=== PATIENT | female | born 1995 | race American Indian/Alaskan Native ===

== ENCOUNTER 2019-08-08 21:53 | Emergency (ER) | payer SELFPAY ==
[2019-08-08 22:01] VITALS: BP 132/77
[2019-08-08] MEDS ORDERED: ACETAMINOPHEN 500 MG TAB PO ONE (23:09)
[2019-08-08] MEDS ORDERED: METOCLOPRAMIDE 10 MG TAB PO ONE (23:09)
[2019-08-08] MEDS ORDERED: predniSONE 20 MG TAB PO ONE (23:09)
[2019-08-08] MEDS ORDERED: diphenhydrAMINE 25 MG CAP PO ONE (23:09)
--- NOTE | 2019-08-09 00:28 | Emergency Department Report ---
ED ENT HPI - General Chief complaint: Sore Throat Stated complaint: SORE THROAT, HEADACHE, RUNNY NOSE Time Seen by Provider: 08/08/19 22:58 Source: patient Mode of arrival: Ambulatory Limitations: No Limitations - History of Present Illness Initial comments: Ms. Perdue is a 24 y/o aaf who presents for headache. sore throat cough, and sinus pain and pressure. pt states low grade fever no chills no n/v. pt is tolerating po intake. symptoms are exacerbated by movement and position , symptoms are relieved by rest. pt states minimal pain with swallowing. MD complaint: sore throat, ear pain Onset/Timin -: days(s) Location: throat, other (sinus ) Severity: moderate Severity scale (0 -10): 5 Quality: aching Consistency: intermittent Improves with: none Worsens with: position, movement Associated Symptoms: fever, cough, sore throat, rhinorrhea. denies: gum swelling, toothache, pain with swallowing, tinnitus, hearing loss, discharge from ear - Related Data Previous Rx's Medication Instructions Recorded Last Taken Type Amoxicillin/Potassium Clav 1 each PO BID 10 Days #20 tablet 08/09/19 Unknown Rx [Augmentin 875-125 Tablet] Ibuprofen [Motrin 800 MG tab] 800 mg PO Q8HR PRN #30 tablet 08/09/19 Unknown Rx diphenhydrAMINE [Benadryl CAP] 25 mg PO Q8HR PRN #30 capsule 08/09/19 Unknown Rx predniSONE [Deltasone] 40 mg PO DAILY 5 Days #10 tablet 08/09/19 Unknown Rx Allergies Allergy/AdvReac Type Severity Reaction Status Date / Time No Known Allergies Allergy Unverified 08/08/19 21:54 ED Dental HPI - General Chief complaint: Sore Throat Stated complaint: SORE THROAT, HEADACHE, RUNNY NOSE Time Seen by Provider: 08/08/19 22:58 Source: patient Mode of arrival: Ambulatory Limitations: No Limitations - Related Data Previous Rx's Medication Instructions Recorded Last Taken Type Amoxicillin/Potassium Clav 1 each PO BID 10 Days #20 tablet 08/09/19 Unknown Rx [Augmentin 875-125 Tablet] Ibuprofen [Motrin 800 MG tab] 800 mg PO Q8HR PRN #30 tablet 08/09/19 Unknown Rx diphenhydrAMINE [Benadryl CAP] 25 mg PO Q8HR PRN #30 capsule 08/09/19 Unknown Rx predniSONE [Deltasone] 40 mg PO DAILY 5 Days #10 tablet 08/09/19 Unknown Rx Allergies Allergy/AdvReac Type Severity Reaction Status Date / Time No Known Allergies Allergy Unverified 08/08/19 21:54 ED Review of Systems ROS: Stated complaint: SORE THROAT, HEADACHE, RUNNY NOSE Other details as noted in HPI Constitutional: chills, fever Eyes: as per HPI ENT: ear pain, throat pain, congestion Respiratory: cough. denies: shortness of breath, wheezing Cardiovascular: denies: chest pain, palpitations Endocrine: no symptoms reported Gastrointestinal: denies: abdominal pain, nausea, vomiting Genitourinary: denies: urgency, dysuria, discharge Musculoskeletal: denies: back pain, joint swelling, arthralgia Skin: denies: rash, lesions Neurological: headache. denies: weakness, numbness, paresthesias, confusion, vertigo Psychiatric: denies: anxiety, depression Hematological/Lymphatic: denies: easy bleeding, easy bruising ED Past Medical Hx - Past Medical History Previous Medical History?: No - Surgical History Past Surgical History?: No - Social History Smoking Status: Never Smoker Substance Use Type: None - Medications Home Medications: Home Medications Medication Instructions Recorded Confirmed Last Taken Type Amoxicillin/Potassium Clav 1 each PO BID 10 Days #20 tablet 08/09/19 Unknown Rx [Augmentin 875-125 Tablet] Ibuprofen [Motrin 800 MG tab] 800 mg PO Q8HR PRN #30 tablet 08/09/19 Unknown Rx diphenhydrAMINE [Benadryl CAP] 25 mg PO Q8HR PRN #30 capsule 08/09/19 Unknown Rx predniSONE [Deltasone] 40 mg PO DAILY 5 Days #10 tablet 08/09/19 Unknown Rx ED Physical Exam - General Limitations: No Limitations General appearance: alert, in no apparent distress - Head Head exam: Present: atraumatic, normocephalic - Eye Eye exam: Present: normal appearance, PERRL, EOMI Pupils: Present: normal accommodation - ENT ENT exam: Present: mucous membranes moist, TM's normal bilaterally, normal external ear exam, other (bilat maxillary sinus tenderness to palpation, bilat turbinate boggy ,clear rhinorrhea ) - Expanded ENT Exam Expanded Ear exam: Present: normal external inspection TM/Canal exam: Erythema: Left TM, Effusion: Left TM Throat exam: Positive: tonsillar erythema, tonsillomegaly, other (uvula midline no exudate no lesions ). Negative: tonsillar exudate, R peritonsillar mass, L peritonsillar mass - Neck Neck exam: Present: normal inspection, tenderness, full ROM. Absent: lymphadenopathy, thyromegaly - Respiratory Respiratory exam: Present: normal lung sounds bilaterally. Absent: respiratory distress, wheezes, stridor, chest wall tenderness - Cardiovascular Cardiovascular Exam: Present: regular rate, normal rhythm, normal heart sounds. Absent: systolic murmur, diastolic murmur, rubs, gallop - GI/Abdominal GI/Abdominal exam: Present: soft, normal bowel sounds. Absent: tenderness, guarding, rebound, rigid, bruit, hernia - Extremities Exam Extremities exam: Present: normal inspection - Back Exam Back exam: Present: normal inspection, full ROM. Absent: CVA tenderness (R), CVA tenderness (L) - Neurological Exam Neurological exam: Present: alert, oriented X3 - Psychiatric Psychiatric exam: Present: normal affect, normal mood - Skin Skin exam: Present: warm, dry, intact, normal color. Absent: rash ED Course Vital Signs 08/08/19 21:54 Temperature 99.2 F Pulse Rate 106 H Respiratory 18 Rate Blood Pressure 132/77 O2 Sat by Pulse 100 Oximetry ED Medical Decision Making - Medical Decision Making headache improved , plan tx for sinus headache, sinusitis, aom, pt will dc to home with rx for augmentin, ibuprofen, benadryl, prednisone. Pt will follow up iwht pcp in 2-3 days. pt verbalized agreement and understanding of discharge plan. Critical care attestation.: If time is entered above; I have spent that time in minutes in the direct care of this critically ill patient, excluding procedure time. ED Disposition Clinical Impression: Sinus headache AOM (acute otitis media) Qualifiers: Otitis media type: serous Laterality: left Recurrence: non-recurrent Qualified Code(s): H65.02 - Acute serous otitis media, left ear Sinusitis Qualifiers: Sinusitis location: maxillary Chronicity: acute Recurrence: recurrent Qualified Code(s): J01.01 - Acute recurrent maxillary sinusitis Disposition: DC-01 TO HOME OR SELFCARE Is pt being admited?: No Does the pt Need Aspirin: No Condition: Stable Instructions: Acute Headache (ED), Sinusitis (ED), Otitis Media (ED) Prescriptions: Amoxicillin/Potassium Clav [Augmentin 875-125 Tablet] 1 each PO BID 10 Days #20 tablet diphenhydrAMINE [Benadryl CAP] 25 mg PO Q8HR PRN #30 capsule PRN Reason: sinus congestion predniSONE [Deltasone] 40 mg PO DAILY 5 Days #10 tablet Ibuprofen [Motrin 800 MG tab] 800 mg PO Q8HR PRN #30 tablet PRN Reason: pain fever Referrals: [facility] [Provider Group] - 3-5 Days Forms: Work/School Release Form(ED) Time of Disposition: 00:44
== END 2019-08-09 00:45 | disposition home or self-care (01) ==
LOC: ED 21:53
DX: J32.0 Chronic maxillary sinusitis (principal); H66.92 Otitis media, unspecified, left ear; Z79.899 Other long term (current) drug therapy
CPT/HCPCS: 99282; J7512

== ENCOUNTER 2019-08-31 20:22 | Emergency (ER) | payer SELFPAY ==
[2019-08-31] MEDS ORDERED: ACETAMINOPHEN 500 MG TAB PO ONE (20:45)
[2019-08-31] MEDS ORDERED: SODIUM CHLORIDE 0.9% 1000 ML 1,000 ML IV ONE (20:45)
[2019-08-31] MEDS ORDERED: CLINDAMYCIN 600 MG/50 mL 600 MG/50 ML BAG IV ONE (20:45)
--- NOTE | 2019-08-31 20:47 | Emergency Department Report ---
ED ENT HPI - General Chief complaint: Dental/Oral Stated complaint: TOOTHACHE Time Seen by Provider: 08/31/19 20:42 Source: patient Mode of arrival: Ambulatory Limitations: No Limitations - History of Present Illness Initial comments: Patient is a 24-year-old female that presents emergency room with complaints of fever and toothache. Patient states she has had a toothache x3 days. Patient states her fever started as her pain increased. Patient denies chest pain. Patient denies shortness of breath. Patient denies cough. Patient denies lightheadedness. Patient denies dizziness. Patient denies headache. Patient denies neck stiffness. Patient denies respiratory symptoms. Patient denies recent travel. Patient denies recent international travel. Patient denies exposure to the novel coronavirus. Patient denies sick contacts. Patient denies fever and chills. Patient denies cough. Patient denies diarrhea. Patient denies coming in contact with anybody with symptoms of the novel coronavirus. MD complaint: tooth pain -: days(s) Location: other Severity: severe Severity scale (0 -10): 10 Quality: stabbing Consistency: constant Improves with: rest Worsens with: eating, movement Context- Dental: history of dental caries, poor dental care Associated Symptoms: fever, gum swelling, toothache. denies: cough, pain with swallowing, sore throat, tinnitus, hearing loss, discharge from ear, rhinorrhea - Related Data Previous Rx's Medication Instructions Recorded Last Taken Type Ibuprofen [Motrin 800 MG tab] 800 mg PO Q8HR PRN #30 tablet 08/09/19 Unknown Rx diphenhydrAMINE [Benadryl CAP] 25 mg PO Q8HR PRN #30 capsule 08/09/19 Unknown Rx predniSONE [Deltasone] 40 mg PO DAILY 5 Days #10 tablet 08/09/19 Unknown Rx Acetaminophen/Codeine [Tylenol 1 tab PO Q6H PRN #10 tab 08/31/19 Unknown Rx /Codeine # 3 tab] Amoxicillin/Potassium Clav 1 each PO BID 10 Days #20 tablet 08/31/19 Unknown Rx [Augmentin 875-125 Tablet] Allergies Allergy/AdvReac Type Severity Reaction Status Date / Time No Known Allergies Allergy Unverified 08/08/19 21:54 ED Dental HPI - General Chief complaint: Dental/Oral Stated complaint: TOOTHACHE Time Seen by Provider: 08/31/19 20:42 Source: patient Mode of arrival: Ambulatory Limitations: No Limitations - Related Data Previous Rx's Medication Instructions Recorded Last Taken Type Ibuprofen [Motrin 800 MG tab] 800 mg PO Q8HR PRN #30 tablet 08/09/19 Unknown Rx diphenhydrAMINE [Benadryl CAP] 25 mg PO Q8HR PRN #30 capsule 08/09/19 Unknown Rx predniSONE [Deltasone] 40 mg PO DAILY 5 Days #10 tablet 08/09/19 Unknown Rx Acetaminophen/Codeine [Tylenol 1 tab PO Q6H PRN #10 tab 08/31/19 Unknown Rx /Codeine # 3 tab] Amoxicillin/Potassium Clav 1 each PO BID 10 Days #20 tablet 08/31/19 Unknown Rx [Augmentin 875-125 Tablet] Allergies Allergy/AdvReac Type Severity Reaction Status Date / Time No Known Allergies Allergy Unverified 08/08/19 21:54 ED Review of Systems ROS: Stated complaint: TOOTHACHE Other details as noted in HPI Constitutional: fever. denies: chills Eyes: denies: eye pain, eye discharge, vision change ENT: dental pain. denies: ear pain, throat pain, hearing loss, epistaxis, congestion Respiratory: denies: cough, shortness of breath, SOB with exertion, SOB at rest, wheezing Cardiovascular: denies: chest pain, palpitations Endocrine: no symptoms reported Gastrointestinal: denies: abdominal pain, nausea, diarrhea Genitourinary: denies: urgency, dysuria, discharge Musculoskeletal: denies: back pain, joint swelling, arthralgia Skin: denies: rash, lesions Neurological: denies: headache, weakness, paresthesias Psychiatric: denies: anxiety, depression Hematological/Lymphatic: denies: easy bleeding, easy bruising ED Past Medical Hx - Past Medical History Previous Medical History?: No - Surgical History Past Surgical History?: No - Family History Family history: no significant - Social History Smoking Status: Never Smoker Substance Use Type: None - Medications Home Medications: Home Medications Medication Instructions Recorded Confirmed Last Taken Type Ibuprofen [Motrin 800 MG tab] 800 mg PO Q8HR PRN #30 tablet 08/09/19 Unknown Rx diphenhydrAMINE [Benadryl CAP] 25 mg PO Q8HR PRN #30 capsule 08/09/19 Unknown Rx predniSONE [Deltasone] 40 mg PO DAILY 5 Days #10 tablet 08/09/19 Unknown Rx Acetaminophen/Codeine [Tylenol 1 tab PO Q6H PRN #10 tab 08/31/19 Unknown Rx /Codeine # 3 tab] Amoxicillin/Potassium Clav 1 each PO BID 10 Days #20 tablet 08/31/19 Unknown Rx [Augmentin 875-125 Tablet] ED Physical Exam - General Limitations: No Limitations General appearance: alert, in no apparent distress - Head Head exam: Present: atraumatic, normocephalic - Eye Eye exam: Present: normal appearance - ENT ENT exam: Present: mucous membranes moist, other (Gingival swelling noted right lower gum with a dental cavity noted. No oral abscess noted) - Neck Neck exam: Present: normal inspection - Respiratory Respiratory exam: Present: normal lung sounds bilaterally. Absent: respiratory distress - Cardiovascular Cardiovascular Exam: Present: regular rate, normal rhythm. Absent: systolic murmur, diastolic murmur, rubs, gallop - GI/Abdominal GI/Abdominal exam: Present: soft, normal bowel sounds - Extremities Exam Extremities exam: Present: normal inspection - Back Exam Back exam: Present: normal inspection - Neurological Exam Neurological exam: Present: alert, oriented X3 - Psychiatric Psychiatric exam: Present: normal affect, normal mood - Skin Skin exam: Present: warm, dry, intact, normal color. Absent: rash ED Course Vital Signs 08/31/19 08/31/19 08/31/19 20:26 20:53 20:54 Temperature 102.4 F H Pulse Rate 121 H 104 H Respiratory 22 18 18 Rate Blood Pressure 148/91 O2 Sat by Pulse 99 98 Oximetry 08/31/19 21:54 Temperature Pulse Rate Respiratory 18 Rate Blood Pressure O2 Sat by Pulse Oximetry - Reevaluation(s) Reevaluation #1: Initial evaluation done. I had the patient rest and I rechecked the patient's heart rate and then patient's heart rate was 98. Patient will have an IV placed and IV fluids and IV clindamycin given. Patient also be given Tylenol and will reassess the patient's vital signs and symptoms. 08/31/19 20:48 Reevaluation #2: Patient's heart rate is 100 at this time. Patient is receiving antibiotics and fluids. Patient is already taking oral Tylenol. We will continue to monitor vital signs and temperature. 08/31/19 21:11 Reevaluation #3: Patient states she is afebrile. Patient states she feeling much better. Patient states her pain is in half. Patient states she is ready to go. Patient states she going to see a dentist in the morning. I discussed all clinical findings with patient. I discussed plan of care with patient. Patient agrees with plan of care. Patient is stable for discharge. Patient will be discharged home. Patient given discharge instructions. Patient voiced understanding of discharge instructions. 08/31/19 22:07 ED Medical Decision Making - Medical Decision Making Patient is a 24-year-old female that presents emergency room with fever and toothache. Patient found to have an infected tooth. Patient was given IV fluids and clindamycin and her vital signs and heart rate improved. Patient left the hospital afebrile after Tylenol. Patient stated prior to discharge that she was feeling much better. Patient discharged home with oral antibiotics and pain medications. Patient also given instruction to follow-up with a dentist as soon as possible. - Differential Diagnosis Tooth ache, fever Critical care attestation.: If time is entered above; I have spent that time in minutes in the direct care of this critically ill patient, excluding procedure time. ED Disposition Clinical Impression: Dental infection, Dental caries Fever Qualifiers: Fever type: unspecified Qualified Code(s): R50.9 - Fever, unspecified Disposition: - TO HOME OR SELFCARE Is pt being admited?: No Does the pt Need Aspirin: No Condition: Stable Instructions: Dental Caries (ED), Toothache (ED) Additional Instructions: Patient to follow-up with primary care in 2 to 3 days. Patient to follow-up with dentist in 2 to 3 days. Patient to rest. Patient to increase water. Patient to take Tylenol or ibuprofen as needed for pain. Patient to eat a soft, brat diet. patient to take meds as directed. Patient to return to the ER if condition worsens, changes or new symptoms arise. Prescriptions: Amoxicillin/Potassium Clav [Augmentin 875-125 Tablet] 1 each PO BID 10 Days #20 tablet Acetaminophen/Codeine [Tylenol /Codeine # 3 tab] 1 tab PO Q6H PRN #10 tab PRN Reason: Pain , Severe (7-10) Referrals: PRIMARY CARE,MD [Primary Care Provider] - 2-3 Days Time of Disposition: 22:10
[2019-08-31 22:09] VITALS: BP 129/92
== END 2019-08-31 22:24 | disposition home or self-care (01) ==
LOC: ED 20:22
DX: K02.9 Dental caries, unspecified (principal); R50.9 Fever, unspecified; Z79.899 Other long term (current) drug therapy
CPT/HCPCS: 96365; 99283; J7030

== ENCOUNTER 2019-09-02 20:32 | Emergency (ER) | payer SELFPAY ==
[2019-09-02] MEDS ORDERED: KETOROLAC 30 MG/1 ML INJ IV ONE (20:49)
--- NOTE | 2019-09-02 20:57 | Emergency Department Report ---
ED ENT HPI - General Chief complaint: Dental/Oral Stated complaint: TOOTHACHE/FOLLOW UP Time Seen by Provider: 09/02/19 20:48 Source: patient Mode of arrival: Ambulatory Limitations: No Limitations - Related Data Previous Rx's Medication Instructions Recorded Last Taken Type Ibuprofen [Motrin 800 MG tab] 800 mg PO Q8HR PRN #30 tablet 08/09/19 Unknown Rx diphenhydrAMINE [Benadryl CAP] 25 mg PO Q8HR PRN #30 capsule 08/09/19 Unknown Rx predniSONE [Deltasone] 40 mg PO DAILY 5 Days #10 tablet 08/09/19 Unknown Rx Acetaminophen/Codeine [Tylenol 1 tab PO Q6H PRN #10 tab 08/31/19 Unknown Rx /Codeine # 3 tab] Amoxicillin/Potassium Clav 1 each PO BID 10 Days #20 tablet 08/31/19 Unknown Rx [Augmentin 875-125 Tablet] Allergies Allergy/AdvReac Type Severity Reaction Status Date / Time No Known Allergies Allergy Unverified 08/08/19 21:54 ED Dental HPI - General Chief complaint: Dental/Oral Stated complaint: TOOTHACHE/FOLLOW UP Time Seen by Provider: 09/02/19 20:48 Source: patient Mode of arrival: Ambulatory Limitations: No Limitations - History of Present Illness Initial comments: This 24-year-old female returns to the ED 24 hours later for increased pain and gum swelling that happened in the last day. Patient initially presented to the ER 2 days ago for a complaint as stated below Patient presented to the emergency room with complaints of fever and toothache. Patient states she has had a toothache x3 days. Patient states her fever started as her pain increased. Patient denies chest pain. Patient denies shortness of breath. Patient denies cough. Patient denies lightheadedness. Patient denies dizziness. Patient denies headache. Patient denies neck stiffness. Patient denies respiratory symptoms. Patient states that she was a bit worried when she noted the gum swelling to the right lower jaw. Patient states that she started the oral antibiotics yesterday and pain medication. MD complaint: tooth pain -: Gradual, Sudden Severity: moderate Quality: aching Context- Dental: history of dental caries Dental Associated Symptons: Yes: Gum Swelling - Related Data Previous Rx's Medication Instructions Recorded Last Taken Type Ibuprofen [Motrin 800 MG tab] 800 mg PO Q8HR PRN #30 tablet 08/09/19 Unknown Rx diphenhydrAMINE [Benadryl CAP] 25 mg PO Q8HR PRN #30 capsule 08/09/19 Unknown Rx predniSONE [Deltasone] 40 mg PO DAILY 5 Days #10 tablet 08/09/19 Unknown Rx Acetaminophen/Codeine [Tylenol 1 tab PO Q6H PRN #10 tab 08/31/19 Unknown Rx /Codeine # 3 tab] Amoxicillin/Potassium Clav 1 each PO BID 10 Days #20 tablet 08/31/19 Unknown Rx [Augmentin 875-125 Tablet] Allergies Allergy/AdvReac Type Severity Reaction Status Date / Time No Known Allergies Allergy Unverified 08/08/19 21:54 ED Review of Systems ROS: Stated complaint: TOOTHACHE/FOLLOW UP Other details as noted in HPI Comment: All other systems reviewed and negative ED Past Medical Hx - Social History Smoking Status: Never Smoker Substance Use Type: None - Medications Home Medications: Home Medications Medication Instructions Recorded Confirmed Last Taken Type Ibuprofen [Motrin 800 MG tab] 800 mg PO Q8HR PRN #30 tablet 08/09/19 Unknown Rx diphenhydrAMINE [Benadryl CAP] 25 mg PO Q8HR PRN #30 capsule 08/09/19 Unknown Rx predniSONE [Deltasone] 40 mg PO DAILY 5 Days #10 tablet 08/09/19 Unknown Rx Acetaminophen/Codeine [Tylenol 1 tab PO Q6H PRN #10 tab 08/31/19 Unknown Rx /Codeine # 3 tab] Amoxicillin/Potassium Clav 1 each PO BID 10 Days #20 tablet 08/31/19 Unknown Rx [Augmentin 875-125 Tablet] ED Physical Exam - General Limitations: No Limitations General appearance: alert, in no apparent distress - Head Head exam: Present: atraumatic, normocephalic - Eye Eye exam: Present: normal appearance - ENT ENT exam: Present: mucous membranes moist - Expanded ENT Exam Expanded Mouth exam: Present: other (Swelling noted to the right jaw) Teeth exam: Present: dental caries (Tooth #29, missing tooth,), gingival enlargement (Tooth #29, when expressed with the tongue depressor puslike discharge seeping out.) Throat exam: Positive: normal inspection. Negative: tonsillar erythema, tonsillomegaly, tonsillar exudate, R peritonsillar mass, L peritonsillar mass - Neck Neck exam: Present: normal inspection, full ROM. Absent: tenderness - Respiratory Respiratory exam: Present: normal lung sounds bilaterally. Absent: respiratory distress - Cardiovascular Cardiovascular Exam: Present: regular rate, normal rhythm. Absent: systolic murmur, diastolic murmur, rubs, gallop - GI/Abdominal GI/Abdominal exam: Present: soft, normal bowel sounds - Extremities Exam Extremities exam: Present: normal inspection - Back Exam Back exam: Present: normal inspection - Neurological Exam Neurological exam: Present: alert, oriented X3 - Psychiatric Psychiatric exam: Present: normal affect, normal mood - Skin Skin exam: Present: warm, dry, intact, normal color. Absent: rash ED Course Vital Signs 09/02/19 09/02/19 20:38 22:09 Temperature 99.8 F H 98.6 F Pulse Rate 130 H 96 H Respiratory 20 18 Rate Blood Pressure 144/100 129/75 [Right] O2 Sat by Pulse 98 100 Oximetry - Reevaluation(s) Reevaluation #1: 09/02/19 21:10 Patient heart rate was elevated and a low-grade fever so will give fluids antibiotics and pain meds in the ER. Will reassess and evaluate heart rate after fluid and antibiotic administration. Reevaluation #2: Patient is feeling some better, vital signs are normalized, pulse rate was reduced Patient will be discharged with instructions to follow-up with a dentist. 09/03/19 06:48 ED Medical Decision Making - Medical Decision Making This 24-year-old female who returned to the ED due to a dental abscess causing swelling to the right lower jaw. Patient given antibiotics and fluids in the ED. Vital signs normalized in the ED. Discussed with patient to continue taking antibiotics and pain medication as given initially. Discussed with patient to follow-up with the dentist as soon as possible. Patient states she understands instructions she is in no respiratory or acute distress. Critical care attestation.: If time is entered above; I have spent that time in minutes in the direct care of this critically ill patient, excluding procedure time. ED Disposition Clinical Impression: Dental abscess Disposition: - TO HOME OR SELFCARE Is pt being admited?: No Does the pt Need Aspirin: No Condition: Stable Instructions: Dental Abscess (ED) Additional Instructions: Make sure to follow up with the primary care physician as discussed. Take all your medications as you've been prescribed. If you have any worsening symptoms or develop new symptoms please return to ED immediately. Referrals: PRIMARY CARE, [Primary Care Provider] - 3-5 Days [facility] [Outside] - 3-5 Days [facility] [Outside] - 3-5 Days Forms: Work/School Release Form(ED) Time of Disposition: 22:05
[2019-09-02] MEDS ORDERED: CLINDAMYCIN 600 MG/50 mL 600 MG/50 ML BAG IV ONE (21:00)
[2019-09-02] MEDS ORDERED: SODIUM CHLORIDE 0.9% 1000 ML 1,000 ML IV ONE (21:04)
[2019-09-02 22:10] VITALS: BP 129/75
== END 2019-09-02 22:28 | disposition home or self-care (01) ==
LOC: ED 20:32
DX: K04.7 Periapical abscess without sinus (principal); Z79.899 Other long term (current) drug therapy
CPT/HCPCS: 96365; 96375; 99282; J1885; J7030

== ENCOUNTER 2021-01-03 10:29 | Emergency (ER) | payer SELFPAY | END 2021-01-03 10:30 | disposition left against medical advice (07) | LOC: ED 10:29 | DX: R07.89 Other chest pain (principal); Z53.21 Procedure and treatment not carried out due to patient leaving prior to being seen by health care provider ==

== ENCOUNTER 2021-08-24 10:53 | Emergency (ER) | payer SELFPAY ==
[2021-08-24] MEDS ORDERED: SODIUM CHLORIDE 0.9% 1000 ML 1,000 ML IV ONE (11:31)
[2021-08-24] MEDS ORDERED: ONDANSETRON 4 MG/2 ML INJ IV ONE (11:31)
[2021-08-24] MEDS ORDERED: MORPHINE 4 MG/1 ML INJ IV ONE (11:31)
[2021-08-24 11:50] LABS: Bacteria,Urine 1+ /HPF (Negative); Bilirubin,Urine NEG (Negative); Blood,Urine NEG (Negative); Color,Urine Yellow (Yellow); Mucus,Urine FEW /HPF; Protein,Urine <15 mg/dL mg/dL (Negative); Urobilinogen,Urine < 2.0 mg/dL (<2.0)
[2021-08-24 11:54] LABS: HCG Qualitative,Urine Negative (Negative)
[2021-08-24 12:16] LABS: Basophils % (Auto) 0.4 % (0.0-1.8); Eosinophils # (Auto) 0.1 K/mm3 (0.0-0.4); Eosinophils % (Auto) 1.4 % (0.0-4.3); Hematocrit 35.2 % (30.3-42.9); Hemoglobin 11.1 gm/dl (10.1-14.3); Lymphocytes # (Auto) 2.7 K/mm3 (1.2-5.4); Lymphocytes % (Auto) 47.9 % (13.4-35.0); Mean Corpuscular HGB Conc 32 % (30-34); Monocytes # (Auto) 0.4 K/mm3 (0.0-0.8); Monocytes % (Auto) 7.5 % (0.0-7.3); Red Blood Count 5.83 M/mm3 (3.65-5.03); Red Cell Distribution Width 14.6 % (13.2-15.2)
[2021-08-24 12:18] LABS: Mean Corpuscular Volume 60 fl (79-97)
[2021-08-24 12:24] LABS: Platelet Count 173 K/mm3 (140-440)
[2021-08-24 12:41] LABS: Alanine Aminotransferase 15 units/L (7-56); Albumin 4.3 g/dL (3.9-5); BUN/Creatinine Ratio 19; Blood Urea Nitrogen 13 mg/dL (7-17); Calcium 9.4 mg/dL (8.4-10.2); Hemolysis Index 1
--- NOTE | 2021-08-24 12:41 | Emergency Department Report ---
ED Abdominal Pain HPI - General Chief Complaint: Abdominal Pain Stated Complaint: ABD PAIN Time Seen by Provider: 08/24/21 11:27 Source: patient Mode of arrival: Ambulatory Limitations: No Limitations - History of Present Illness Initial Comments: This is a 26-year-old female nontoxic, well nourished in appearance, no acute signs of distress presents to the ED with c/o of nausea and abdominal pain several days. Patient denies any vomiting. Denies any other symptoms or complaints. Denies any vaginal discharge, pelvic pain or vaginal bleeding. Patient describes abdominal pain as cramping and aching with level of 8/10 primarily to the epigastric and left upper abdomen. Examination of pain. Patient denies chest pain, short of breath, fever, hemoptysis, blood in stool, chills, headache, stiff neck, numbness or tingling. Patient denies any diarrhea or constipation. Denies any blood in stool. Patient denies any recent travels. Patient denies any allergies or significant past medical history. MD Complaint: abdominal pain -: days(s) Location: LUQ, epigastric Radiation: none Migration to: no migration Severity: mild Severity scale (0 -10): 8 Quality: cramping, aching Consistency: intermittent Improves With: nothing Worsens With: nothing Associated Symptoms: nausea. denies: vomiting, diarrhea, fever, chills, constipation, dysuria, hematemesis, hematochezia, melena, hematuria, anorexia, syncope - Related Data Previous Rx's Medication Instructions Recorded Last Taken Type RX: Ibuprofen [Motrin 800 MG tab] 800 mg PO Q8HR PRN #30 tablet 08/09/19 Unknown Rx RX: predniSONE [Deltasone] 40 mg PO DAILY 5 Days #10 tablet 08/09/19 Unknown Rx diphenhydrAMINE [Benadryl CAP] 25 mg PO Q8HR PRN #30 capsule 08/09/19 Unknown Rx Acetaminophen/Codeine [Tylenol 1 tab PO Q6H PRN #10 tab 08/31/19 Unknown Rx /Codeine # 3 tab] RX: Amoxicillin/Potassium Clav 1 each PO BID 10 Days #20 tablet 08/31/19 Unknown Rx [Augmentin 875-125 Tablet] Ondansetron [Zofran Odt] 4 mg PO Q8HR PRN #12 tab.rapdis 08/24/21 Unknown Rx cephALEXin [Keflex] 500 mg PO Q8HR #21 cap 08/24/21 Unknown Rx Allergies Allergy/AdvReac Type Severity Reaction Status Date / Time No Known Allergies Allergy Unverified 08/08/19 21:54 ED Review of Systems ROS: Stated complaint: ABD PAIN Other details as noted in HPI Comment: All other systems reviewed and negative Constitutional: denies: chills, fever Eyes: denies: eye pain, eye discharge, vision change ENT: denies: ear pain, throat pain Respiratory: denies: cough, shortness of breath, wheezing Cardiovascular: denies: chest pain, palpitations Endocrine: no symptoms reported Gastrointestinal: abdominal pain, nausea. denies: vomiting, diarrhea, constipation, hematemesis, melena, hematochezia Genitourinary: denies: urgency, dysuria, discharge Musculoskeletal: denies: back pain, joint swelling, arthralgia Skin: denies: rash, lesions Neurological: denies: headache, weakness, paresthesias Psychiatric: denies: anxiety, depression Hematological/Lymphatic: denies: easy bleeding, easy bruising ED Past Medical Hx - Social History Smoking Status: Never Smoker Substance Use Type: None - Medications Home Medications: Home Medications Medication Instructions Recorded Confirmed Last Taken Type RX: Ibuprofen [Motrin 800 MG tab] 800 mg PO Q8HR PRN #30 tablet 08/09/19 Unknown Rx RX: predniSONE [Deltasone] 40 mg PO DAILY 5 Days #10 tablet 08/09/19 Unknown Rx diphenhydrAMINE [Benadryl CAP] 25 mg PO Q8HR PRN #30 capsule 08/09/19 Unknown Rx Acetaminophen/Codeine [Tylenol 1 tab PO Q6H PRN #10 tab 08/31/19 Unknown Rx /Codeine # 3 tab] RX: Amoxicillin/Potassium Clav 1 each PO BID 10 Days #20 tablet 08/31/19 Unknown Rx [Augmentin 875-125 Tablet] Ondansetron [Zofran Odt] 4 mg PO Q8HR PRN #12 tab.rapdis 08/24/21 Unknown Rx cephALEXin [Keflex] 500 mg PO Q8HR #21 cap 08/24/21 Unknown Rx ED Physical Exam - General Limitations: No Limitations General appearance: alert, in no apparent distress - Head Head exam: Present: atraumatic, normocephalic - Eye Eye exam: Present: normal appearance - Neck Neck exam: Present: normal inspection, full ROM. Absent: lymphadenopathy - Respiratory Respiratory exam: Present: normal lung sounds bilaterally. Absent: respiratory distress, wheezes, rales, rhonchi, stridor, chest wall tenderness, accessory muscle use, decreased breath sounds, prolonged expiratory - Cardiovascular Cardiovascular Exam: Present: regular rate, normal rhythm, normal heart sounds. Absent: bradycardia, tachycardia, irregular rhythm, systolic murmur, diastolic murmur, rubs, gallop - GI/Abdominal GI/Abdominal exam: Present: soft, tenderness (LUQ), normal bowel sounds. Absent: distended, guarding, rebound, rigid, diminished bowel sounds, mass, bruit, pulsatile mass, hernia - Extremities Exam Extremities exam: Present: full ROM - Back Exam Back exam: Present: normal inspection, full ROM. Absent: tenderness, CVA tenderness (R), CVA tenderness (L), muscle spasm, paraspinal tenderness, vertebral tenderness, rash noted - Neurological Exam Neurological exam: Present: alert, oriented X3, normal gait - Psychiatric Psychiatric exam: Present: normal affect, normal mood - Skin Skin exam: Present: warm, dry, intact, normal color. Absent: rash ED Course Vital Signs 08/24/21 08/24/21 08/24/21 11:06 11:36 12:05 Temperature 98.5 F 98.5 F Pulse Rate 76 76 Respiratory 18 18 20 Rate Blood Pressure 130/81 Blood Pressure 130/81 [Right] O2 Sat by Pulse 99 99 Oximetry 08/24/21 12:35 Temperature Pulse Rate Respiratory 20 Rate Blood Pressure Blood Pressure [Right] O2 Sat by Pulse Oximetry - Reevaluation(s) Reevaluation #1: 08/24/21 12:41 Patient is speaking in full sentences with no signs of distress noted. ED Medical Decision Making - Lab Data Result diagrams: 08/24/21 11:49 08/24/21 11:49 Lab Results 08/24/21 08/24/21 08/24/21 Range/Units 11:33 11:49 11:49 WBC 5.6 (4.5-11.0) K/mm3 RBC 5.83 H (3.65-5.03) M/mm3 Hgb 11.1 (10.1-14.3) gm/dl Hct 35.2 (30.3-42.9) % MCV 60 L (79-97) fl MCH 19 L (28-32) pg MCHC 32 (30-34) % RDW 14.6 (13.2-15.2) % Plt Count 173 (140-440) K/mm3 Lymph % (Auto) 47.9 H (13.4-35.0) % Mccracken % (Auto) 7.5 H (0.0-7.3) % Eos % (Auto) 1.4 (0.0-4.3) % Baso % (Auto) 0.4 (0.0-1.8) % Lymph # (Auto) 2.7 (1.2-5.4) K/mm3 Mccracken # (Auto) 0.4 (0.0-0.8) K/mm3 Eos # (Auto) 0.1 (0.0-0.4) K/mm3 Baso # (Auto) 0.0 (0.0-0.1) K/mm3 Seg Neutrophils % 42.8 (40.0-70.0) % Seg Neutrophils # 2.4 (1.8-7.7) K/mm3 Sodium 138 (137-145) mmol/L Potassium 3.9 (3.6-5.0) mmol/L Chloride 104.5 (98-107) mmol/L Carbon Dioxide 22 (22-30) mmol/L Anion Gap 15 mmol/L BUN 13 (7-17) mg/dL Creatinine 0.7 (0.6-1.2) mg/dL Estimated GFR > 60 ml/min BUN/Creatinine Ratio 19 % Glucose 108 H (65-100) mg/dL Calcium 9.4 (8.4-10.2) mg/dL Total Bilirubin 0.40 (0.1-1.2) mg/dL AST 16 (5-40) units/L ALT 15 (7-56) units/L Alkaline Phosphatase 62 (35-129) units/L Total Protein 8.0 (6.3-8.2) g/dL Albumin 4.3 (3.9-5) g/dL Albumin/Globulin Ratio 1.2 % Lipase 48 (13-60) units/L Urine Color Yellow (Yellow) Urine Turbidity Cloudy (Clear) Urine pH 5.0 (5.0-7.0) Ur Specific Eure 1.027 (1.003-1.030) Urine Protein <15 mg/dl (Negative) mg/dL Urine Glucose (UA) Neg (Negative) mg/dL Urine Ketones Neg (Negative) mg/dL Urine Blood Neg (Negative) Urine Nitrite Neg (Negative) Urine Bilirubin Neg (Negative) Urine Urobilinogen < 2.0 (<2.0) mg/dL Ur Leukocyte Esterase Lg (Negative) Urine WBC (Auto) 11.0 H (0.0-6.0) /HPF Urine RBC (Auto) 3.0 (0.0-6.0) /HPF U Epithel Cells (Auto) 46.0 H (0-13.0) /HPF Urine Bacteria (Auto) 1+ (Negative) /HPF Urine Mucus Few /HPF Urine HCG, Qual Negative (Negative) - Radiology Data [facility] [address] [place] [address] Cat Scan Report Signed Patient: ALEXANDRA WORKMAN MR#: [id number] : 1995 Acct:[id number] Age/Sex: 26 / F ADM Date: 08/24/21 Loc: ED Attending Dr: Ordering Physician: ANGÉLICA LUCAS NP Date of Service: 08/24/21 Procedure(s): CT abdomen pelvis w con Accession Number(s): [id number] cc: ANGÉLICA LUCAS NP CT ABDOMEN AND PELVIS WITH CONTRAST INDICATION / CLINICAL INFORMATION: abd pain with nausea. TECHNIQUE: Axial CT images were obtained through the abdomen and pelvis after 100 cc of Omnipaque [address] scans at this location are performed using CT dose reduction for ALARA by means of automated exposure control. COMPARISON: None available. FINDINGS: LOWER CHEST: No significant abnormality. LIVER: No significant abnormality. GALLBLADDER: No significant abnormality. BILE DUCTS: No significant abnormality. PANCREAS: No significant abnormality. SPLEEN: No significant abnormality. ADRENALS: No significant abnormality. RIGHT KIDNEY / URETER: No significant abnormality. LEFT KIDNEY / URETER: No significant abnormality. STOMACH / SMALL BOWEL: No significant abnormality. COLON: No significant abnormality. APPENDIX: No significant abnormality. PERITONEUM: No free fluid. No free air. No fluid collection. LYMPH NODES: No significant adenopathy. AORTA / ARTERIES: No significant abnormality. IVC / VEINS: No significant abnormality. URINARY BLADDER: No significant abnormality. REPRODUCTIVE ORGANS: No significant abnormality. ADDITIONAL FINDINGS: None. SKELETAL SYSTEM: No significant abnormality. IMPRESSION: 1. No acute abnormality identified. Signer Name: Eduardo Smith MD Signed: 08/24/2021 3:05 PM Workstation Name: [id number] Transcribed By: PRISCILLA Dictated By: EDUARDO SMITH MD Electronically Authenticated By: EDUARDO SMITH MD Signed Date/Time: 08/24/21 150 DD/ 02 TD/TT: - Medical Decision Making This is a 26-year-old female that presents with abdominal pain, nausea and UTI. Patient is stable and was examined by me. Negative signs of symptoms of appendicitis. Labs obtained. UA obtained. CT of abdomen obtained and dictated by the radiologist. Patient is notified of the report with no questions noted by the patient. Vital signs are stable prior to discharge. Patient received medical treatment in the ED which patient stated symptoms has resovled and subsided. Was instructed note to operate any machinery due to possible drowsiness and stated someone will drive the patient home. A by mouth challenge has been obtained and patient tolerated well with no nausea vomiting. Patient was also instructed to Follow-up with a primary care doctor in 3-5 days or if symptoms worsen and continue return to emergency room as soon as possible. At time of discharge, the patient does not seem toxic or ill in appearance. No acute signs of distress noted. Patient agrees to discharge treatment plan of care. No further questions noted by the patient. Critical care attestation.: If time is entered above; I have spent that time in minutes in the direct care of this critically ill patient, excluding procedure time. ED Disposition Clinical Impression: Nausea Abdominal pain Qualifiers: Abdominal location: left upper quadrant Qualified Code(s): R10.12 - Left upper quadrant pain UTI (urinary tract infection) Qualifiers: Urinary tract infection type: acute cystitis Hematuria presence: without hematuria Qualified Code(s): N30.00 - Acute cystitis without hematuria Disposition: HOME / SELF CARE / HOMELESS Is pt being admited?: No Does the pt Need Aspirin: No Condition: Stable Instructions: Abdominal Pain (ED), Abdominal Pain, Adult, Urinary Tract Infection, Adult, [id number] Additional Instructions: Follow-up with a primary care doctor in 3-5 days or if symptoms worsen and continue return to emergency room as soon as possible. Prescriptions: cephALEXin [Keflex] 500 mg PO Q8HR #21 cap Ondansetron [Zofran Odt] 4 mg PO Q8HR PRN #12 tab.rapdis PRN Reason: Nausea Referrals: IRISH SAWANT MD [Primary Care Provider] - 3-5 Days PRIMARY CARE, [Referring] - 3-5 Days Time of Disposition: 15:25
--- NOTE | 2021-08-24 15:09 | Cat Scan Report ---
CT ABDOMEN AND PELVIS WITH CONTRAST INDICATION / CLINICAL INFORMATION: abd pain with nausea. TECHNIQUE: Axial CT images were obtained through the abdomen and pelvis after 100 cc of Omnipaque [address] scans at this location are performed using CT dose reduction for ALARA by means of automated exposure control. COMPARISON: None available. FINDINGS: LOWER CHEST: No significant abnormality. LIVER: No significant abnormality. GALLBLADDER: No significant abnormality. BILE DUCTS: No significant abnormality. PANCREAS: No significant abnormality. SPLEEN: No significant abnormality. ADRENALS: No significant abnormality. RIGHT KIDNEY / URETER: No significant abnormality. LEFT KIDNEY / URETER: No significant abnormality. STOMACH / SMALL BOWEL: No significant abnormality. COLON: No significant abnormality. APPENDIX: No significant abnormality. PERITONEUM: No free fluid. No free air. No fluid collection. LYMPH NODES: No significant adenopathy. AORTA / ARTERIES: No significant abnormality. IVC / VEINS: No significant abnormality. URINARY BLADDER: No significant abnormality. REPRODUCTIVE ORGANS: No significant abnormality. ADDITIONAL FINDINGS: None. SKELETAL SYSTEM: No significant abnormality. IMPRESSION: 1. No acute abnormality identified. Signer Name: Eduardo Smith MD Signed: 08/24/2021 3:05 PM Workstation Name: [id number]
[2021-08-24 15:44] VITALS: BP 129/88
== END 2021-08-24 15:44 | disposition home or self-care (01) ==
LOC: ED 10:53
DX: N39.0 Urinary tract infection, site not specified (principal); R10.9 Unspecified abdominal pain; R11.0 Nausea
CPT/HCPCS: 36415; 74177; 80053; 81001; 81025; 83690; 85025; 87086; 96361; 96374; 96375; 99284; J2270; J2405; J7030; Q9967; Q0162